=== PATIENT | female | born 1985 | race Hispanic/Latino ===

== ENCOUNTER → 2017-09-15 | Day surgery (SDC) | payer OTHER ==
--- NOTE | 2017-09-14 19:59 | History & Physical Pre-Op ---
General Information and HPI History of Present Illness: Patient is a 31-year-old 3 para 3 with menorrhagia and probable endometrial polyp noted on transvaginal ultrasound. She's here for a D&C with hysteroscopy and possible polypectomy. Allergies/Medications Allergies: Coded Allergies: No Known Allergies (03/02/17) Home Med list Docusate Sodium 100 MG CAPSULE 100 MG PO BID PRN STOOL SOFTENER Ibuprofen 800 MG TABLET 800 MG PO Q6P PRN UTERINE CRAMPING Oxycodone HCl/Acetaminophen (Percocet 5-325 MG Tablet) 5 MG-325 MG TABLET 1 TAB PO Q4P PRN ABDOMINAL PAIN Pnv No.122/Iron/Folic Acid ( Multi Tablet) 27 MG IRON-800 MCG TABLET 1 TAB PO DAILY SUPPLEMENT (Reported) Past History Surgical History Pertinent Surgical History: D&c Review of Systems Review of Systems Constitutional: Reports: no symptoms. EENTM: Reports: no symptoms. Cardiovascular: Reports: no symptoms. Respiratory: Reports: no symptoms. GI: Reports: no symptoms. Genitourinary: Reports: no symptoms. Musculoskeletal: Reports: no symptoms. Skin: Reports: no symptoms. Neurological/Psychological: Reports: no symptoms. Hematologic/Endocrine: Reports: no symptoms. Immunologic/Allergic: Reports: no symptoms. All Other Systems: Reviewed and Negative Exam & Diagnostic Data Last 24 Hrs of Vital Signs/I&O Vital signs stable afebrile Physical Exam: HEENT: Normocephalic atraumatic Chest: Clear to auscultation bilaterally Cardiovascular: Normal S1, S2 Abdomen: Soft, nontender nondistended Pelvic: Deferred to the OR Extremities: No clubbing, cyanosis, or edema Neurologic: Nonfocal Assessment/Plan Assessment/Plan: Thickened endometrium Plan: D&C hysteroscopy As Ranked By This Provider Problem List: 1. Thickened endometrium
[~2017-09-15] VITALS: Ht 160 cm; Wt 95.3 kg
[~2017-09-15] MED LIST: DOCUSATE SODIU100 M3 PO; HUMULIN N100 UNIT/1 SQ; IBUPROFEN800 M1 PO; PERCOCET 5-3251 EACH PO; PRENATAL MULTI1 EAC2 PO
--- NOTE | 2017-09-23 20:32 | Operative Report ---
Operative/Inv Procedure Report Surgery Date: 09/15/17 Name of Procedure: D&C hysteroscopy Pre-Operative Diagnosis: Thickened endometrium Post-Operative Diagnosis: Same Estimated Blood Loss: scant Surgeon/High School Sports Coach: Christopher Arevalo MD Anesthesia: local monitored anesthesi Operative/Procedure Note Note: The patient was brought to the operating room and placed on the OR table in the dorsal supine position. She was given adequate anesthesia repositioned in modified dorsal lithotomy. She was prepped and draped in usual sterile fashion. A weighted speculum was inserted into the vagina. The [place] retractor single- toothed tenaculum was attached to the anterior lip of the cervix. The cervix was injected with 1% lidocaine. Endocervical curettage was performed. The uterus was then sounded 9 cm and serially dilated. The hysteroscope was placed into the uterus and noted shaggy calcified endometrium. The hysteroscope was then removed and dilation was continued. Endometrial curettage revealed a moderate amount of tissue. At the end of the procedure hemostasis was good and the instruments removed. Patient was sent to recovery in good condition. All needle, sponge, and instrument counts were correct 2.
== END ==
LOC: STS 09-01 07:00
DX: N92.0 Excessive and frequent menstruation with regular cycle (principal); R93.8 Abnormal findings on diagnostic imaging of other specified body structures
CPT/HCPCS: 88305; J1885; J2250; J2405